=== PATIENT | female | born 1970 | race Caucasian/White ===

== ENCOUNTER 2016-12-31 16:03 | Emergency (ER) | payer OTHER ==
[~2016-12-31] VITALS: Ht 165.1 cm; Wt 76.0 kg
[2016-12-31] MEDS ORDERED: NORCO 5/3251 TABLET PO (16:51)
[2016-12-31] MEDS ORDERED: FLEXERIL5 MG PO (16:51)
[2016-12-31 17:15] VITALS: BP 169/78
== END 2016-12-31 17:25 | disposition home or self-care (01) ==
LOC: EME 16:03
DX: M54.5 Low back pain (principal); S93.401A Sprain of unspecified ligament of right ankle, initial encounter; W11.XXXA Fall on and from ladder, initial encounter; F41.9 Anxiety disorder, unspecified; F17.200 Nicotine dependence, unspecified, uncomplicated
CPT/HCPCS: 99281; 99284